=== PATIENT | male | born 1935 | race Caucasian/White ===

== ENCOUNTER 2020-06-16 10:06 | Emergency (ER) | payer OTHER, BC ==
[2020-06-16 10:21] VITALS: BP 140/78; PULSE 66; TEMP 97.6; BMI 24.3
[2020-06-16] MEDS ORDERED: DIPHTH,PERTUSS(ACELL),TET 0.5 ML DISP.SYRIN IM ONE ×2 (10:21→10:46)
[2020-06-16] MEDS ORDERED: AMOX TR/POT CLAV 875MG/125MG TABLETS (FP) PO ONE (10:48)
[2020-06-16] MEDS ORDERED: AMOX TR/POT CLAV 875MG/125MG TABLETS (FP) ONE (10:49)
== END 2020-06-16 11:17 | disposition home or self-care (01) ==
LOC: FER 10:06
PROC: 3E0234Z Introduction of Serum, Toxoid and Vaccine into Muscle, Percutaneous Approach (ICD-10-PCS; principal; 2020-06-16)
DX: S81.852A Open bite, left lower leg, initial encounter (principal)
CPT/HCPCS: 90715; 99284-25